=== PATIENT | male | born 1940 | race Asian ===

== ENCOUNTER → 2016-06-19 | Outpatient (CLI) | payer MEDICARE ==
[~2016-06-19] MED LIST: OMNIPAQUE 350 MG/ML, 100ML BOTTLE ONE
== END | disposition home or self-care (01) ==
LOC: RAD 10:39
PROVIDERS: ATTEND Otolaryngology
DX: C06.9 Malignant neoplasm of mouth, unspecified (principal); R91.1 Solitary pulmonary nodule
CPT/HCPCS: 36415; 70491; 82565; Q9967

== ENCOUNTER 2016-06-23 08:08 | Observation (INO) | payer MEDICARE ==
[~2016-06-23] VITALS: Ht 177.8 cm; Wt 89.0 kg
[2016-06-23 09:17] VITALS: BP 142/75
[2016-06-23] MEDS ORDERED: FLUT9.9S NAS (09:17)
[2016-06-23] MEDS ORDERED: LACTATED RINGERS 1,000 ML IV SCH (09:23)
[2016-06-23] MEDS ORDERED: OXYMETAZOLINE NASAL SPRAY 0.05%, 15ML ONE (09:42)
[2016-06-23] MEDS ORDERED: BACITRACIN OINT 500U/GM, 15 GM ONE (09:43)
[2016-06-23] MEDS ORDERED: LIDOCAINE/MPF 2%-EPI 1:200K, 20 ML ONE (09:43)
[2016-06-23] MEDS ORDERED: FENTANYL PF 250 MCG/5ML ONE (09:55)
[2016-06-23] MEDS ORDERED: ROCURONIUM 10 MG/ML ONE (10:03)
[2016-06-23] MEDS ORDERED: ONDANSETRON 2MG/ML, 2ML ONE (10:03)
[2016-06-23] MEDS ORDERED: PROPOFOL 10 MG/ML, 20ML ONE (10:03)
[2016-06-23] MEDS ORDERED: CEFAZOLIN 1,000 MG ONE (10:03)
[2016-06-23] MEDS ORDERED: GLYCOPYRROLATE 0.2MG/1ML ONE (10:03)
[2016-06-23] MEDS ORDERED: DEXAMETHASONE 4 MG/ML, 1ML ONE (10:03)
[2016-06-23] MEDS ORDERED: NEOSTIGMINE 1 MG/ML, 10ML ONE (10:03)
[2016-06-23] MEDS ORDERED: PHENYLEPHRINE 10 MG/ML ONE (10:03)
[2016-06-23] MEDS ORDERED: LIDOCAINE 1%-EPI 1:100K, 50ML INFIL ONE (10:29)
[2016-06-23] MEDS ORDERED: PROMETHAZINE 25 MG/ML, 1ML IV PRN (11:00)
[2016-06-23] MEDS ORDERED: ONDANSETRON 2MG/ML, 2ML IVPush PRN ×2 (11:00→15:30)
[2016-06-23] MEDS ORDERED: HYDROcodone/APAP 7.5-325MG/15ML UDC PO PRN (11:00)
[2016-06-23] MEDS ORDERED: OXYcodone 5 MG/5 ML ORAL.SOL UDC PO PRN (11:00)
[2016-06-23] MEDS ORDERED: ACETAMINOPHEN 325 MG TABLET PO PRN (11:00)
[2016-06-23] MEDS ORDERED: HYDROmorphone 1 MG/ML, 1ML IV PRN (11:00)
[2016-06-23] MEDS ORDERED: HYDROmorphone 1 MG/ML, 1ML ONE (11:13)
[2016-06-23] MEDS ORDERED: BACITRACIN OINT 500U/GM, 15 GM TP ONE (12:37)
[2016-06-23] MEDS ORDERED: ACETAMINOPHEN 325 MG TABLET ONE (13:30)
[2016-06-23] MEDS ORDERED: ACETAMINOPHEN 650 MG/20.3 ML UDC ONE (13:30)
[2016-06-23] MEDS ORDERED: FENTANYL PF 100 MCG/2ML ONE (13:30)
[2016-06-23] MEDS ORDERED: OXYcodone 5 MG/5 ML ORAL.SOL UDC ONE (13:31)
[2016-06-23] MEDS: FENTANYL PF 100 MCG/2ML IV PRN ×2 (14:07→14:17)
[2016-06-23] MEDS ORDERED: DIPHENHYDRAMINE 50 MG/ML, 1ML IVPush PRN (15:30)
[2016-06-23] MEDS ORDERED: MORPHINE SULFATE 4 MG/ML, 1ML IVPush PRN (15:30)
[2016-06-23] MEDS ORDERED: HYDROcodone/APAP 7.5-325MG/15ML UDC ONE (18:50)
[2016-06-23] MEDS: HYDROcodone/APAP 7.5-325MG/15ML UDC PO PRN ×2 (18:52→23:35)
[2016-06-23 19:55] VITALS: BP 135/66
[2016-06-23] MEDS: LACTATED RINGERS 1,000 ML IV SCH (23:35)
[2016-06-23 23:44] VITALS: BP 133/59
[2016-06-24] MEDS: HYDROcodone/APAP 7.5-325MG/15ML UDC PO PRN ×4 (03:58→21:33)
[2016-06-24 04:50] VITALS: BP 127/64
[2016-06-24 06:40] VITALS: BP 125/60
[2016-06-24] MEDS: LACTATED RINGERS 1,000 ML IV SCH ×2 (09:00→19:00)
[2016-06-24 12:25] VITALS: BP 121/66
[2016-06-24 20:37] VITALS: BP 106/61
[2016-06-25 03:16] VITALS: BP 147/76
[2016-06-25] MEDS: LACTATED RINGERS 1,000 ML IV SCH (05:00)
[2016-06-25] MEDS: HYDROcodone/APAP 7.5-325MG/15ML UDC PO PRN (05:26)
[2016-06-25 05:56] LABS: BLOOD UREA NITROGEN 14 mg/dL (7-18)
[2016-06-25 08:30] VITALS: BP 127/77
[2016-06-25] MEDS ORDERED: BACITRACIN OINT 500U/GM, 15 GM TP SCH (10:00)
[2016-06-25] MEDS ORDERED: HYDR-3240 PO (11:48)
[2016-06-25] MEDS ORDERED: ONDA4TAB10 PO (11:49)
== END 2016-06-25 12:06 | disposition home or self-care (01) ==
LOC: OUT 08:08 → 4NOR 15:03 → OUT 22:35 → DCLOUNGE 06-25 12:06
PROVIDERS: ADMIT Otolaryngology; ATTEND Otolaryngology
DX: C02.9 Malignant neoplasm of tongue, unspecified (principal)
CPT/HCPCS: 36415; 38720; 41112; 80048; 85025; 88304; 88305; 88307; 88331; 93005; C1729; G0378; J0690; J1100; J1170; J2370; J2405; J2704; J2710; J3010; J7120; J3490

== ENCOUNTER → 2016-08-05 | Outpatient (CLI) | payer MEDICARE ==
[~2016-08-05] MED LIST changes: +FLUT9.9S NAS; +HYDR-3240 PO; -OMNIPAQUE 350 MG/ML, 100ML BOTTLE ONE; +ONDA4TAB10 PO
[2016-08-05 11:12] LABS: BLOOD UREA NITROGEN 21 mg/dL (7-18)
[2016-08-05 11:23] LABS: ASPARTATE AMINO TRANSFERASE 13 U/L (15-37)
== END | disposition home or self-care (01) ==
LOC: RAD 10:46
PROVIDERS: ATTEND Specialist
DX: C02.9 Malignant neoplasm of tongue, unspecified (principal)
CPT/HCPCS: 36415; 71020; 80053; 85025

== ENCOUNTER → 2016-09-03 | Outpatient (CLI) | payer MEDICARE | END | disposition home or self-care (01) | LOC: CFH 12:55 | PROVIDERS: ATTEND Family Medicine | DX: S22.079A Unspecified fracture of T9-T10 vertebra, initial encounter for closed fracture (principal); S22.089A Unspecified fracture of T11-T12 vertebra, initial encounter for closed fracture; S32.029A Unspecified fracture of second lumbar vertebra, initial encounter for closed fracture; M51.24 Other intervertebral disc displacement, thoracic region; M48.07 Spinal stenosis, lumbosacral region; M25.78 Osteophyte, vertebrae; G89.29 Other chronic pain; R93.8 Abnormal findings on diagnostic imaging of other specified body structures; X58.XXXA Exposure to other specified factors, initial encounter; Y93.89 Activity, other specified; Y92.89 Other specified places as the place of occurrence of the external cause; Y99.8 Other external cause status | CPT/HCPCS: 72146; 72148; 93306 ==

== ENCOUNTER → 2017-11-10 | Outpatient (CLI) | payer MEDICARE | END | disposition home or self-care (01) | LOC: PETCFH 09:28 | PROVIDERS: ATTEND Otolaryngology | DX: C76.0 Malignant neoplasm of head, face and neck (principal); C02.9 Malignant neoplasm of tongue, unspecified; Z87.891 Personal history of nicotine dependence; Z88.0 Allergy status to penicillin | CPT/HCPCS: 78815; A9552 ==